=== PATIENT | female | born 1945 | race Native Hawaiian/Other Pacific Islander ===

== ENCOUNTER 2018-06-30 09:01 | Day surgery (SDC) | payer MEDICARE, MEDICAID ==
[2018-06-30 09:12] VITALS: BMI 25.6
[2018-06-30 09:15] VITALS: O2SAT 97
--- NOTE | 2018-06-30 09:31 | ED PDOC ---
Arrival/HPI - General Chief Complaint: Chest Pain Historian: Patient - History of Present Illness Narrative History of Present Illness (Text): 06/30/18 09:30 72 y/o F, with past medical history of hypertension, presents to the ED accompanied by family complaining of worsening chest pain since yesterday. As per daughter, patient has been expressing chest discomfort for past 3 weeks with progressively worsening symptoms. Patient was evaluated by Dr. Peñaloza yesterday for the presented symptoms, who performed a stress test at the office and informed patient of a possible atherosclerosis. Patient was additionally asked to present to the ED immediately if the pain worsens. Patient reports associated intermittent shortness of breath and increasing fatigue with subjective fever for past week. Patient informs taking Tylenol with mild improvement to symptoms. As per daughter, patient is compliant with good diet and fluid intake. Patient currently denies any other associated somatic complaints. Patient denies any chills, headache, dizziness, cough, abdominal pain, nausea, vomiting, diarrhea, back pain, neck pain, leg swelling or any other complaints. PMD: Dr. Huseyin Martin Chairman Ceo: Dr. Peñaloza Time/Duration: > week Symptom Onset: Gradual Symptom Course: Unchanged Quality: Aching Activities at Onset: Light Context: Home Past Medical History - Provider Review Nursing Documentation Reviewed: Yes - Reproductive Menopause: Yes - Cardiac Hx Cardiac Disorders: Yes Hx Hypertension: Yes - Gastrointestinal Hx Gastrointestinal Disorders: Yes Hx Gastroesophageal Reflux: Yes - Psychiatric Hx Substance Use: No Family/Social History - Physician Review Nursing Documentation Reviewed: Yes Family/Social History: Unknown Family HX Smoking Status: Never Smoked Hx Alcohol Use: No Hx Substance Use: No Allergies/Home Meds Allergies/Adverse Reactions: Allergies No Known Allergies Allergy (Unverified 06/30/18 09:17) Home Medications: Home Meds Medication Instructions Recorded Confirmed Aspirin [Aspirin Chewable] 81 mg PO DAILY 06/30/18 06/30/18 Clopidogrel [Plavix] 75 mg PO DAILY 06/30/18 06/30/18 D-Methorphan/PE/Acetaminophen 2 tab PO BID 06/30/18 06/30/18 [Mapap Multi-Symptom Cold Formula 325 mg-10 mg] Omeprazole 20 mg PO DAILY 06/30/18 06/30/18 Tizanidine HCl [Zanaflex Capsule] 2 mg PO HS 06/30/18 06/30/18 Valsartan/Hydrochlorothiazide 1 tab PO DAILY 06/30/18 06/30/18 [Valsartan and Hydrochlorothiazide 12.5 mg-320] amLODIPine [Norvasc] 5 mg PO DAILY 06/30/18 06/30/18 Review of Systems - Physician Review All systems were reviewed & negative as marked: Yes - Review of Systems Constitutional: Fatigue, Fevers Respiratory: SOB. absent: Cough Cardiovascular: Chest Pain, Palpitations Gastrointestinal: absent: Abdominal Pain, Diarrhea, Nausea, Vomiting, Appetite Changes Genitourinary Female: absent: Dysuria, Urine Output Changes Musculoskeletal: absent: Back Pain, Neck Pain Skin: absent: Rash Neurological: absent: Headache, Dizziness Endocrine: absent: Polyuria Psychiatric: absent: Anxiety Physical Exam Vital Signs Reviewed: Yes Vital Signs Temp Pulse Resp BP Pulse Ox 06/30/18 09:15 98.3 F 86 18 136/71 97 Temperature: Afebrile Blood Pressure: Normal Pulse: Regular Respiratory Rate: Normal Appearance: Positive for: Well-Appearing, Non-Toxic, Comfortable Pain Distress: None Mental Status: Positive for: Alert and Oriented X 3 - Systems Exam Head: Present: Atraumatic, Normocephalic Pupils: Present: PERRL Extroacular Muscles: Present: EOMI Conjunctiva: Present: Normal Neck: Present: Normal Range of Motion Respiratory/Chest: Present: Clear to Auscultation, Good Air Exchange. No: Respiratory Distress, Accessory Muscle Use Cardiovascular: Present: Regular Rate and Rhythm, Normal S1, S2. No: Murmurs Abdomen: No: Tenderness, Distention, Peritoneal Signs Back: Present: Normal Inspection Upper Extremity: Present: Normal Inspection. No: Cyanosis, Edema Lower Extremity: Present: Normal Inspection. No: Edema Neurological: Present: GCS=15, CN II-XII Intact, Speech Normal Skin: Present: Warm, Dry, Normal Color. No: Rashes Psychiatric: Present: Alert, Oriented x 3, Normal Insight, Normal Concentration Medical Decision Making ED Course and Treatment: 06/30/18 09:07 Impression: 72 year old female presents to the ED complaining of chest pain since 3 weeks. Differential Diagnosis included but are not limited to: --ACS --PE --PNA --Coronary Aneurysms --Myocarditis/Pericarditis Plan: -- EKG -- Labs -- Chest X-ray -- Urinalysis -- Reassess and disposition Prior Visits: Notes and results from previous visits were reviewed. Patient was last seen in the emergency department on Progress Notes: 06/30/18 10:06 Labs reviewed with elevated D dimer noted. Troponin and BNP pending. CXR unremarkable for mediastinal widening blurring of aortic knob 06/30/18 10:18 Troponin & BNP WNL. Contacted Dr. 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 Patient will be transported for cardiac catheterization. - Lab Interpretations Lab Results: 06/30/18 09:25 06/30/18 09:25 Lab Results 06/30/18 09:25: D-Dimer, Quantitative 333 H 06/30/18 09:25: Sodium 141, Potassium 3.5 L, Chloride 106, Carbon Dioxide 29, Anion Gap 9 L, BUN 11, Creatinine 0.6 L, Est GFR ( Amer) > 60, Est GFR (Non-Af Amer) > 60, Random Glucose 117 H, Calcium 9.3, Magnesium 2.0, Total Bilirubin 0.8, AST 56 H, ALT 56, Alkaline Phosphatase 76, Troponin I Pending, NT-Pro-B Natriuret Pep Pending, Total Protein 7.9, Albumin 4.2, Globulin 3.7, Albumin/Globulin Ratio 1.1 06/30/18 09:25: WBC 5.2, RBC 4.04, Hgb 12.4, Hct 38.9, MCV 96.3, MCH 30.7, MCHC 31.9, RDW 12.9, Plt Count 183, MPV 8.1, Gran % 47.9 L, Lymph % (Auto) 38.1 H, Faulk % (Auto) 12.1 H, Eos % (Auto) 1.7, Baso % (Auto) 0.2, Gran # 2.50, Lymph # (Auto) 2.0, Faulk # (Auto) 0.6, Eos # (Auto) 0.1, Baso # (Auto) 0.01 - RAD Interpretation Narrative RAD Interpretations (Text): 06/30/18 10:14 Chest X-ray reviewed by radiologist, shows: FINDINGS: LUNGS: Borderline patchy atelectasis or infiltrate seen at the right greater than left lung base with remaining lung holly otherwise clear. Linear atelectasis or fib rosis in the inferior left lung zone laterally. PLEURA: No significant pleural effusion identified, no pneumothorax apparent. CARDIOVASCULAR: No aortic atherosclerotic calcification present. Normal cardiac size. No pulmonary vascular congestion. OSSEOUS STRUCTURES: No significant abnormalities. VISUALIZED UPPER ABDOMEN: Normal. OTHER FINDINGS: None. IMPRESSION: Borderline atelectasis infiltrate right greater than left lung bases and left basilar atelectasis or fibrosis with remainder of the exam otherwise unremarkable. No pulmonary vascular congestion. Radiology Orders: 06/30/18 09:07 CHEST PORTABLE [RAD] Stat Medical Records Field Technician: Radiologist - EKG Interpretation EKG Interpretation (Text): NSR @ 83bpm LVH Prolonged QT interval Interpreted by ED Physician: Yes - Scribe Statement The provider has reviewed the documentation as recorded by the Scribe Tee Bach. All medical record entries made by the Scribe were at my direction and personal ly dictated by me. I have reviewed the chart and agree that the record accurately reflects my personal performance of the history, physical exam, medical decision making, and the department course for this patient. I have also personally directed, reviewed, and agree with the discharge instructions and disposition. Disposition/Present on Arrival - Present on Arrival Any Indicators Present on Arrival: No History of DVT/PE: No History of Uncontrolled Diabetes: No Urinary Catheter: No History of Decub. Ulcer: No History Surgical Site Infection Following: None - Disposition Have Diagnosis and Disposition been Completed?: Yes Diagnosis: Chest pain Disposition: HOSPITALIZED Disposition Time: 10:20 Patient Plan: Transfer To Patient Problems: Current Active Problems Problem Status Onset Chest pain Acute Condition: FAIR
[2018-06-30 09:44] LABS: BASO # 0.01 K/mm3 (0.0-2.0); BASO % 0.2 % (0.0-3.0); EOS # 0.1 (0.0-0.7); EOS % 1.7 % (1.5-5.0); GRAN # 2.5 (1.4-6.5); GRAN % 47.9 % (50.0-68.0); HEMOGLOBIN 12.4 g/dL (12.0-16.0); LYMPH % 38.1 % (22.0-35.0); MEAN CELL VOLUME 96.3 fl (80.0-105.0); MEAN CORPUSCULAR HEMOGLOBIN 30.7 pg (25.0-35.0); MEAN CORPUSCULAR HGB CONC 31.9 g/dl (31.0-37.0); MEAN PLATELET VOLUME 8.1 fl (7.0-11.0); MONO # 0.6 (0.1-0.6); MONO % 12.1 % (1.0-6.0); RBC 4.04 10^6/uL (3.5-6.1); RED CELL DISTRIBUTION WIDTH 12.9 % (11.5-14.5); WHITE BLOOD COUNT 5.2 10^3/uL (4.5-11.0)
[2018-06-30 09:54] LABS: ALB/GLOB RATIO 1.1 (1.1-1.8); ALBUMIN 4.2 g/dL (3.0-4.8); ALT/SGPT 56 U/L (7-56); AST/SGOT 56 U/L (14-36); BLOOD UREA NITROGEN 11 mg/dL (7-21); CALCIUM 9.3 mg/dL (8.4-10.5); GFR NON-AFRICAN AMERICAN > 60
[2018-06-30 10:05] LABS: B-TYPE NATRIURETIC PEPTIDE 44.2 pg/mL (0-450); TROPONIN I < 0.01 ng/mL
--- NOTE | 2018-06-30 10:12 | RAD ---
Date of service: 06/30/2018 HISTORY: chest pain COMPARISON: No prior. FINDINGS: LUNGS: Borderline patchy atelectasis or infiltrate seen at the right greater than left lung base with remaining lung holly otherwise clear. Linear atelectasis or fibrosis in the inferior left lung zone laterally. PLEURA: No significant pleural effusion identified, no pneumothorax apparent. CARDIOVASCULAR: No aortic atherosclerotic calcification present. Normal cardiac size. No pulmonary vascular congestion. OSSEOUS STRUCTURES: No significant abnormalities. VISUALIZED UPPER ABDOMEN: Normal. OTHER FINDINGS: None. IMPRESSION: Borderline atelectasis infiltrate right greater than left lung bases and left basilar atelectasis or fibrosis with remainder of the exam otherwise unremarkable. No pulmonary vascular congestion.
[2018-06-30] MEDS ORDERED: Phenylephrine 10 mg/ml Inj ONE (10:39)
[2018-06-30] MEDS ORDERED: Iohexol 350mgl/ml 50 ML ONE (10:39)
[2018-06-30] MEDS ORDERED: Lidocaine 2% Inj (20ml) ONE (10:39)
[2018-06-30] MEDS ORDERED: Iodixanol 320 MG/ML 200 ML BOTTLE IV ONE (10:40)
[2018-06-30] MEDS ORDERED: Iodixanol 320 MG/ML 100 ML BOTTLE IV ONE (10:40)
[2018-06-30] MEDS ORDERED: Nitroglycerin 50mg in D5W 50 MG/250 ML BOTTLE IV ONE (10:40)
[2018-06-30 10:43] LABS: URINE BILIRUBIN NEGATIVE (NEGATIVE); URINE BLOOD NEGATIVE (NEGATIVE); URINE GLUCOSE (UA) NEGATIVE (NEGATIVE); URINE LEUKOCYTE ESTERASE NEGATIVE Leu/uL (NEGATIVE); URINE PROTEIN NEGATIVE mg/dL (<30 mg/dL); URINE UROBILINOGEN 0.2 E.U./dL (<1 E.U./dL)
[2018-06-30 10:44] LABS: URINE APPEARANCE CLEAR (CLEAR); URINE COLOR YELLOW (YELLOW)
[2018-06-30] MEDS ORDERED: Midazolam 2 MG/2 ML VIAL ONE ×2 (11:15→11:30)
[2018-06-30] MEDS ORDERED: Potassium Chloride 20 mEq ER Tab PO ONE (11:19)
[2018-06-30] MEDS ORDERED: Sodium Chloride 0.9% 1,000 ML IV SCH (12:00)
[2018-06-30 18:07] VITALS: RESP 16; TEMP 98
[2018-06-30 18:54] VITALS: BP 138/70; PULSE 90
--- NOTE | 2018-06-30 19:33 | CARDCATH ---
PROCEDURE DATE: 06/30/2018 HISTORY: The patient is a 72-year-old woman with multiple cardiac risk factors who presented to the emergency room with progressive exertional angina. Her symptoms progressed where they occurred with minimal exertion. The patient had a stress test that was performed at [facility] a few days ago which was abnormal. Because of this, a cardiac catheterization was recommended. PROCEDURE: Left heart catheterization with coronary arteriography and left ventriculogram followed by PTCA of the proximal RCA. The right femoral artery was cannulated with a 6-Georgian sheath. There were no complications. I performed moderate sedation which included the presence of an independent trained observer that assisted in monitoring the patient's level of consciousness and physiologic status. After administration of Versed and fentanyl, my intra-service time was 30 minutes. The findings on catheterization revealed a left ventricle that contracted normally. Estimated ejection fraction of 55-60%. The patient had a right dominant circulation. The RCA and its proximal portion revealed an 80% stenosis. 200 mcg of IC nitroglycerin was given. No change in the lesion was noted. The left main artery was unremarkable. The LAD and diagonal vessels were free of significant disease. The circumflex artery and obtuse marginal branches were free of significant disease. The patient started on intravenous Angiomax under fluoroscopic guide, the guiding catheter was placed in the ostium of the RCA. An 0.014 ATW wire was used to cross the lesion. A 2.5 balloon was utilized to predilate the lesion at 10 atmospheres of pressure. After balloon deflation removal, repeat coronary arteriography revealed resolution of 80% stenosis. No stents were placed. CELIO III flow went down the RCA. Angio-Seal was used to close the femoral artery site. The patient tolerated the procedure well. In summary, the procedure was successful for PTCA with a balloon of 80% proximal RCA stenosis, which was relieved without placing a stent. This probably represents coronary spasm instead of an atherosclerotic lesion. Cardiac catheterization revealed single-vessel CAD. Normal LV function. Given these findings, the patient remains on aspirin indefinitely and Plavix and undergo a cardiac risk reduction program. Sarabjit Peñaloza MD
--- NOTE | 2018-07-01 10:38 | CARD ---
APPROVED REPORT Date of service: 06/30/2018 EKG Measurement Heart [id number] <Conclusion> Normal sinus rhythm Prolonged QT Abnormal ECG
--- NOTE | 2018-07-01 16:32 | CARD ---
APPROVED REPORT Date of service: 06/30/2018 EKG Measurement Heart [id number] <Conclusion> Poor data quality, interpretation may be adversely affected Normal sinus rhythm Minimal voltage criteria for LVH, may be normal variant Prolonged QT Abnormal ECG
== END 2018-06-30 19:54 | disposition home or self-care (01) ==
LOC: ED 09:01 → CATH 10:39 → 2RSO 12:20 → CATH 19:54
PROVIDERS: ATTEND Internal Medicine Cardiovascular Disease
DX: I25.10 Atherosclerotic heart disease of native coronary artery without angina pectoris (principal); R94.39 Abnormal result of other cardiovascular function study; R07.89 Other chest pain; I10 Essential (primary) hypertension; Z79.82 Long term (current) use of aspirin; Z79.899 Other long term (current) drug therapy
CPT/HCPCS: 36415; 71045; 80053; 81003; 83735; 83880; 84484; 85025; 85378; 86850; 86900; 92920; 93005; 93458; 99152; 99153; 99284; C1725; C1760; C1769; C1887; C2629; J0583; J1644; J2250; J3010; J7030; J7040; Q9966; Q9967 ×2